=== PATIENT | female | born 1930 | race Caucasian/White ===

== ENCOUNTER → 2016-06-03 | Outpatient (REF) | payer MEDICARE | LOC: M LAB REF 16:47 | PROVIDERS: ATTEND Internal Medicine | DX: E05.90 Thyrotoxicosis, unspecified without thyrotoxic crisis or storm (principal) ==

== ENCOUNTER → 2016-07-24 | Outpatient (CLI) | payer MEDICARE ==
--- NOTE | 2016-07-25 17:01 | REP ---
NUCLEAR THYROID SCAN WITH UPTAKE: 07/25/2016: Clinical history: Abnormal blood work indicative of hyperthyroidism in May, recent ultrasound showed left lobe nodule. Currently she has fatigue, hair loss, poor appetite and weight loss of 18 pounds in 6 months. Technique: The patient received 275 microcuries I 123 as sodium iodide in a capsule. Images at 24 hours were obtained with uptake measurements also performed at that time. Findings: Thyroid imaging showed that radiotracer distribution was generally homogeneous with the exception of a small photopenic area inferior pole on the left lower pole medially. The right lobe 4.5 cm, left lobe about 3.9 cm. 24 hour uptake value is 13.8%. Normal uptake values at 24 hours are 25-35%. Impression: 1. Low 24 hour uptake at 13.8%, should be in the range of 25 - 35%. 2. Small photopenic area lower pole left lobe of the thyroid corresponding to the nodule seen on ultrasound in the lower pole on the left suggesting cool, photopenic nodule. Biopsy should be considered. Signed by Tino Villalta MD 07/26/2016 11:39 A
== END ==
LOC: M RAD 12:38
PROVIDERS: ATTEND Internal Medicine
DX: E05.90 Thyrotoxicosis, unspecified without thyrotoxic crisis or storm (principal)
CPT/HCPCS: 78012; A9516

== ENCOUNTER 2016-08-20 16:39 | Emergency (ER) | payer MEDICARE ==
[~2016-08-20] VITALS: Ht 149.9 cm; Wt 69.7 kg
[2016-08-20] MEDS ORDERED: ATOR1TAB19 PO (16:52)
[2016-08-20] MEDS: NS 1,000 ML IV SCH ×2 (17:20→18:40)
[2016-08-20 18:23] LABS: BASO % 0.3 % (0.0-1.0); EOS # 0.1 K/mm3 (0.0-0.50); EOS % 0.8 % (0.0-3.0); LARGE UNSTAINED CELL # 0.2 K/mm3 (0.0-0.4); LARGE UNSTAINED CELL % 1.8 % (0.0-4.0); LYMPH # 1.1 K/mm3 (1.5-4.5); LYMPH % 11.5 % (24.0-44.0); MEAN CORPUSCULAR HEMOGLOBIN 30.1 pg (27.0-33.0); MEAN CORPUSCULAR HGB CONC 32.6 g/dl (32.0-36.5); MEAN CORPUSCULAR VOLUME 92.1 fl (80.0-96.0); MONO # 0.4 K/mm3 (0.0-0.8); MONO % 4.3 % (0.0-5.0); NEUTROPHILS # 7.8 K/mm3 (1.8-7.7); NEUTROPHILS % 81.3 % (36.0-66.0); PLATELET COUNT, AUTOMATED 208 k/mm3 (150-450); WHITE BLOOD COUNT 9.6 K/mm3 (4.0-10.0)
--- NOTE | 2016-08-20 18:24 | REP ---
RIGHT SHOULDER, COMPLETE: 08/20/2016. Clinical history: Trauma, patient fell. Shoulder pain. Comparison: 08/14/2011. Findings: Three views show advanced osteoarthritic changes of the shoulder with progression compared to the 2011 prior. The AC joint shows some spurring, but no evidence of AC joint separation, clavicular, scapula or rib fracture. Bones are demineralized. There is no subluxation or dislocation on the scapular Y view. Very limited range of motion with internal and external rotation evident. Impression: 1. Severe osteoarthritic changes of the hip joint with mild to moderate severity in the AC joint without acute fracture, subluxation or dislocation. Progressive changes compared to 2011. Signed by Tino Villalta MD 08/21/2016 03:16 P
--- NOTE | 2016-08-20 18:25 | REP ---
AP PELVIS WITH LEFT HIP: 08/20/2016. Clinical history: Trauma, patient fell. Comparison: 01/30/2014. Findings:AP pelvis: Pelvic ring is intact. Symphysis pubis, pubic rami were unremarkable. There are clips in the inguinal regions and heavy vascular calcifications in the common femoral arteries and below. Vascular calcifications in the aortoiliac vessels as well. SI joints with sclerosis inferiorly. Iliac wings without a visible fracture, acetabuli intact. Hip joint space is narrowed, right greater than left, similar to previous study. Left hip: AP and frog-leg views show no evidence of fracture or AVN. No impaction is suggested. There is no focal lytic or sclerotic lesion about the femoral head or acetabular roof neck and trochanters grossly intact. Proximal femoral shaft unremarkable. Visualized sacrum, SI joints and iliac wing without acute finding. Sclerosis iliac margin of the SI joints and facet arthritis noted. Impression: 1. Bilateral hip arthritis, left greater than right without evidence of an acute fracture or impaction. There are degenerative changes of the lower lumbar spine, facets and SI joints. If you have high clinical suspicion for occult fracture based on persistent pain or abnormal examination, further evaluation with CT may be helpful. Signed by Tino Villalta MD 08/21/2016 03:16 P
--- NOTE | 2016-08-20 18:45 | REP ---
CT BRAIN WITHOUT CONTRAST: 08/20/2016. Clinical history: Trauma. Findings: Noncontrast images of the brain with soft tissue and bone windows reviewed for each slice level. Ventricles are midline, symmetric, dilated in proportion to the moderately severe atrophy. That atrophy is greatest in the frontal and temporal lobes. Basal ganglia were grossly symmetric and a few calcifications as benign findings typical in this age group. Heterogeneous low attenuation white matter changes bilaterally suggesting chronic small vessel white matter ischemic change. There is no vascular territory infarct, intracranial hemorrhage, mass, mass effect or extra-axial fluid collection. Brainstem intact. Cerebellum shows atrophy without focal lesion. Basal cisterns intact. The mastoids, sinuses, skull base and calvarium are without acute findings. Vascular calcifications in the carotid siphons and vertebral basilar arteries noted. There is a small superficial scalp hematoma in the right temporal region. No subjacent bony abnormality or contre-coup injury. Impression: 1. 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 2. No CT evidence of intracranial hemorrhage, acute infarct, mass, edema or extra-axial fluid collection. Small right temporal scalp hematoma. 3. No fracture skull base or calvarium and the sinuses and mastoids grossly intact. Signed by Tino Villalta MD 08/21/2016 03:17 P
--- NOTE | 2016-08-20 18:52 | REP ---
CT CERVICAL SPINE WITHOUT CONTRAST: 08/20/2016. Clinical history: Trauma, patient fell. Neck pain. Findings: Axial soft-tissue and bone window settings with coronal and sagittal bone window reconstructions per our normal CT cervical trauma protocol. Sagittal reconstructions show disc space narrowing, greatest at C5-6 and C6-7, but also at C7-T1 and T1-2. Levels above are relatively preserved. There is a few millimeters of anterolisthesis of C3 on C4, C4 on C5 and C7 on T1. Posterior osteophytes at C5-6, C6-7 and C7-T1. The dens is intact. Its relationship to the lateral masses and anterior arch of C1 appears the same on all projections. The ring of C1 is intact. Foramina show some stenosis at C5-6 bilaterally. Central canal appears mildly stenotic at C5-6, adequate at the other levels. The upper thoracic levels show the visualized ribs intact and the lung apices were grossly intact as well. Impression: 1. Degenerative disc disease throughout the cervical spine with facet arthritis at multiple levels and mild central canal stenosis at C5-6 with foraminal encroachment as well due to combined factors. 2. No acute compression defect or deformity. 3. There are some few millimeters of anterolisthesis at multiple levels as described and related to facet arthritis. The posterior elements, upper thoracic levels and soft tissues are grossly intact. Nothing acute. Signed by Tino Villalta MD 08/21/2016 03:18 P
[2016-08-20 19:06] LABS: ALBUMIN 3.5 GM/DL (3.2-5.2); ALBUMIN/GLOBULIN RATIO 1.59 (1.00-1.93); ALKALINE PHOSPHATASE 58 U/L (45-117); ALT/SGPT 16 U/L (12-78); ANION GAP 8 MEQ/L (8-16); AST/SGOT 17 U/L (15-37); BILIRUBIN,DIRECT < 0.1 MG/DL (0.0-0.2); BILIRUBIN,TOTAL 0.5 MG/DL (0.2-1.0); BLOOD UREA NITROGEN 48 MG/DL (7-18); CALCIUM LEVEL 9.6 MG/DL (8.8-10.2); CARBON DIOXIDE LEVEL 25 MEQ/L (21-32); CHLORIDE LEVEL 98 MEQ/L (98-107); CREATININE FOR GFR 1.64 MG/DL (0.55-1.02); GLOMERULAR FILTRATION RATE 31.6 (>32); GLUCOSE, FASTING 99 MG/DL (83-110); SODIUM LEVEL 131 MEQ/L (136-145); TOTAL PROTEIN 5.7 GM/DL (6.4-8.2)
--- NOTE | 2016-08-20 19:07 | REP ---
CT ABDOMEN AND PELVIS WITHOUT CONTRAST: 08/20/2016. Clinical history: Abdominal pain. No prior CT. Technique. Noncontrast exam with coronal and sagittal reconstructions. Findings: CT abdomen: Lung bases show no infiltrate, nodule or mass. No effusion. Heart is enlarged. There is left atrial and ventricular enlargement and heavy calcifications in the mitral annulus. Coronary calcifications and some mediastinal clips with sternotomy wires noted. No pericardial thickening or effusion. I see no hiatal hernia. Stomach shows no masses. Coarse calcification in the gastric wall near the fundus. I see no hepatosplenomegaly. There has been prior cholecystectomy with clips in the jamia hepatis. No biliary dilatation. A few calcifications scattered in the liver. No ascites. Spleen is not enlarged and has numerous coarse calcifications from old granulomatous disease. There is a dextrorotatory scoliosis of the thoracic and lumbar spine with advanced degenerative disc change throughout. Visualized ribs intact. Spine shows vacuum phenomenon from T10-11 through L3-4. Anterolisthesis of L3 on L4 by a few millimeters. Anterior posterior osteophytes at L2-3. Central stenosis at L2-3, L3-4 and L4-5 due to combined factors, less at L5-S1. Pancreas grossly intact. Common duct up to 11 mm. Jamia hepatis and pancreatic head typical for postoperative patient in this age group. No calcifications within it. Heavily calcified aorta without aneurysm. Small bowel loops are fluid-filled without dilatation. 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 Extrarenal pelvis on the left. No definite stone disease. No perinephric fluid or mass. Ureters show normal course to the bladder and are without dilatation or stone. No free air in the abdomen or pelvis on lung window review of all CT slices. No perforation. Colon without acute findings. No abdominal wall mass identified. CT pelvis: Bony hips show some degenerative changes of the joint space, narrowing, but no evidence of fracture or AVN. Acetabulum, iliac wings and SI joints intact. Sacrum and ala with the foramina intact. Facet arthropathy lower lumbar spine. Symphysis pubis and pubic rami unremarkable. No ventral or inguinal hernia nor pathologic inguinal adenopathy. Bladder shows some wall thickening without mass or stone. Uterus anteverted, not enlarged. No adnexal or pelvic mass. Vascular calcifications throughout the iliac and femoral vessels. Impression: 1. Advanced degenerative disc disease and facet arthritis lower lumbar spine and throughout the upper lumbar and lower thoracic region disc disease. 2. Hip arthritis, SI joint degenerative change without evidence of acute fracture. 3. There is no ascites, solid organ abnormality, perforation, abscess or mass. 4. Prior cholecystectomy with the liver and spleen evident for prior granulomatous disease. No retroperitoneal hematoma or aortic aneurysm. Signed by Tino Villalta MD 08/21/2016 03:18 P
[2016-08-20 19:11] LABS: POTASSIUM SERUM 5.4 MEQ/L (3.5-5.1)
[2016-08-20 21:14] VITALS: BP 149/61
--- NOTE | 2016-08-22 08:10 | ECGEPIP ---
Stationary ECG Study [facility] - ED Test Date: 2016-08-20 Pat Name: CJ ORTEGA Department: Room: - Gender: F [employer] Supervisor: JUANITA : [id number] Requested By: CHALINO Dhillon Order Number: [id number] Reading MD: Denis Smith Measurements Intervals [place] Rate: 76 P: 54 RI: 216 QRS: 66 QRSD: 113 T: -23 QT: 395 QTc: 446 Interpretive Statements SINUS RHYTHM WITH MARKED SINUS ARRHYTHMIA WITH FIRST DEGREE AV BLOCK MODERATE INTRAVENTRICULAR CONDUCTION DELAY NONSPECIFIC T-WAVE ABNORMALITY NO PRIORS Electronically Signed On 08-22-2016 8:10:00 EDT by Denis Smith
== END 2016-08-20 22:12 | disposition home or self-care (01) ==
LOC: M ED 18:00
DX: A08.4 Viral intestinal infection, unspecified (principal); Z91.81 History of falling; M16.0 Bilateral primary osteoarthritis of hip; M47.816 Spondylosis without myelopathy or radiculopathy, lumbar region; M19.011 Primary osteoarthritis, right shoulder; M50.30 Other cervical disc degeneration, unspecified cervical region; M48.02 Spinal stenosis, cervical region; I25.10 Atherosclerotic heart disease of native coronary artery without angina pectoris; Z95.1 Presence of aortocoronary bypass graft; Z79.899 Other long term (current) drug therapy

== ENCOUNTER → 2016-08-29 | Outpatient (REF) | payer MEDICARE ==
[~2016-08-29] MED LIST: ATOR1TAB19 PO
[2016-08-29 17:36] LABS: THYROID PEROXIDASE ANTIBODY 56.3 U/ML (<60.0)
== END ==
LOC: M LABDRAW1 17:00
PROVIDERS: ATTEND Internal Medicine Endocrinology, Diabetes & Metabolism
DX: E05.00 Thyrotoxicosis with diffuse goiter without thyrotoxic crisis or storm (principal)

== ENCOUNTER → 2016-11-06 | Outpatient (REF) | payer MEDICARE ==
[2016-11-06 19:04] LABS: FREE T4 0.61 NG/DL (0.76-1.46)
== END ==
LOC: M LABDRAW1 16:03
PROVIDERS: ATTEND Internal Medicine Endocrinology, Diabetes & Metabolism
DX: E05.00 Thyrotoxicosis with diffuse goiter without thyrotoxic crisis or storm (principal)

== ENCOUNTER → 2017-05-09 | Outpatient (CLI) | payer MEDICARE ==
[2017-05-09 17:04] LABS: FREE T4 0.93 NG/DL (0.76-1.46)
== END ==
LOC: M ADAMS 13:55
DX: E05.00 Thyrotoxicosis with diffuse goiter without thyrotoxic crisis or storm (principal)
CPT/HCPCS: 84443

== ENCOUNTER → 2017-07-09 | Outpatient (REF) | payer MEDICARE ==
[2017-07-09 21:21] LABS: FREE T4 1.38 NG/DL (0.76-1.46); THYROID STIMULATING HORMONE 0.068 uIU/ML (0.358-3.740)
== END ==
LOC: M LAB REF 18:42
DX: E05.00 Thyrotoxicosis with diffuse goiter without thyrotoxic crisis or storm (principal)
CPT/HCPCS: 84443

== ENCOUNTER → 2017-09-07 | Outpatient (CLI) | payer MEDICARE ==
[2017-09-07 20:21] LABS: THYROID STIMULATING HORMONE 0.015 uIU/ML (0.358-3.740)
[2017-09-07 20:21] LABS: FREE T4 1.48 NG/DL (0.76-1.46)
== END ==
LOC: M ADAMS 14:50
DX: E05.00 Thyrotoxicosis with diffuse goiter without thyrotoxic crisis or storm (principal)
CPT/HCPCS: 84443

== ENCOUNTER → 2017-10-08 | Outpatient (CLI) | payer MEDICARE ==
[2017-10-08 20:17] LABS: FREE T4 1.52 NG/DL (0.76-1.46); THYROID STIMULATING HORMONE 0.014 uIU/ML (0.358-3.740)
== END ==
LOC: M ADAMS 15:34
DX: E05.00 Thyrotoxicosis with diffuse goiter without thyrotoxic crisis or storm (principal)
CPT/HCPCS: 84443

== ENCOUNTER → 2017-10-19 | Outpatient (REF) | payer MEDICARE ==
[2017-10-19 19:04] LABS: IRON (FE) 68 UG/DL (50-170); PERCENT SATURATION 25.2 % (13.2-45.0); TOTAL IRON BINDING CAPACITY 270 UG/DL (250-450)
[2017-10-19 19:10] LABS: VITAMIN B12 LEVEL 642 PG/ML
[2017-10-19 19:11] LABS: FOLATE > 24.0 NG/ML
== END ==
LOC: M LAB REF 18:34
DX: D64.9 Anemia, unspecified (principal)
CPT/HCPCS: 82746

== ENCOUNTER → 2017-11-27 | Outpatient (CLI) | payer MEDICARE ==
[2017-11-27 20:18] LABS: THYROID STIMULATING HORMONE 0.049 uIU/ML (0.358-3.740)
[2017-11-27 20:18] LABS: FREE T4 1.25 NG/DL (0.76-1.46)
== END ==
LOC: M ADAMS 16:43
DX: E05.00 Thyrotoxicosis with diffuse goiter without thyrotoxic crisis or storm (principal)
CPT/HCPCS: 84443

== ENCOUNTER → 2018-04-02 | Outpatient (REF) | payer MEDICARE ==
[2018-04-02 14:05] LABS: FREE T4 1.06 NG/DL (0.76-1.46); THYROID STIMULATING HORMONE 0.252 uIU/ML (0.358-3.740)
== END ==
LOC: M LABDRWAD 12:55
PROVIDERS: ATTEND Nurse Practitioner Family
DX: E05.00 Thyrotoxicosis with diffuse goiter without thyrotoxic crisis or storm (principal)

== ENCOUNTER 2018-04-22 17:21 | Emergency (ER) | payer MEDICARE ==
[~2018-04-22] VITALS: Ht 149.9 cm; Wt 68.2 kg
[2018-04-22] MEDS ORDERED: ENAL20TA (17:29)
[2018-04-22] MEDS ORDERED: FURO40TA2 (17:29)
[2018-04-22] MEDS ORDERED: PANTOPRAZOLE 40MG TAB (PROTONIX) PO ONE (18:00)
[2018-04-22] MEDS ORDERED: NS 1,000 ML IV ONE (18:00)
[2018-04-22] MEDS ORDERED: ONDANSETRON 4MG/2ML VIAL (J2405) IV ONE (18:00)
[2018-04-22] MEDS ORDERED: PANTOPRAZOLE 40MG INJ (PROTONIX) (C9113) IV ONE (18:30)
--- NOTE | 2018-04-22 18:39 | REP ---
Acute abdominal series three views including PA chest and supine upright abdomen: PA chest: Comparison is 07/22/2012. The patient is rotated. Lung steen are clear. Cardiac size is normal. There is no free subdiaphragmatic air. There are sternotomy wires, unchanged. Impression: Essentially negative PA chest. Abdomen, supine upright views: There is scattered gas in nondistended small and large bowel loops in a nonspecific pattern. There are no air-fluid levels. There are right upper quadrant surgical clips. There are two metallic tubular shaped density superimposed over the abdomen. Significance, possibly [place] artifacts. There is scoliosis and degenerative disc disease throughout the lumbar spine. There is joint space narrowing of the hips bilaterally suggestive of arthropathy. Impression: Nonspecific bowel gas pattern. Electronically Signed by Zbigniew Dye MD 04/22/2018 06:29 P
[2018-04-22 18:47] LABS: BASO % 0.5 % (0.0-1.0); EOS % 0.3 % (0.0-3.0); HEMATOCRIT 31.4 % (36.0-47.0); HEMOGLOBIN 10.7 g/dl (12.0-15.5); LYMPH % 13.8 % (24.0-44.0); MEAN CORPUSCULAR HEMOGLOBIN 31.4 pg (27.0-33.0); MEAN CORPUSCULAR HGB CONC 34.1 g/dl (32.0-36.5); MEAN CORPUSCULAR VOLUME 92.1 fl (80.0-96.0); MONO # 0.5 10^3/uL (0.0-0.8); MONO % 7.2 % (0.0-5.0); NEUTROPHILS # 5.8 10^3/uL (1.8-7.7); NEUTROPHILS % 77.9 % (36.0-66.0); PLATELET COUNT, AUTOMATED 293 10^3/uL (150-450); RED BLOOD COUNT 3.41 10^6/uL (4.00-5.40); WHITE BLOOD COUNT 7.5 10^3/uL (4.0-10.0)
[2018-04-22 18:54] LABS: ALBUMIN 3.7 GM/DL (3.2-5.2); ALT/SGPT 21 U/L (12-78); BILIRUBIN,DIRECT < 0.1 MG/DL (0.0-0.2); BILIRUBIN,TOTAL 0.4 MG/DL (0.2-1.0); BLOOD UREA NITROGEN 41 MG/DL (7-18); CALCIUM LEVEL 9.2 MG/DL (8.8-10.2); CARBON DIOXIDE LEVEL 24 MEQ/L (21-32); CHLORIDE LEVEL 96 MEQ/L (98-107); CREATININE FOR GFR 1.57 MG/DL (0.55-1.30); GLOMERULAR FILTRATION RATE 33.1 (>32); GLUCOSE, FASTING 77 MG/DL (70-100); LIPASE 119 U/L (73-393); SODIUM LEVEL 130 MEQ/L (136-145); TOTAL PROTEIN 6.2 GM/DL (6.4-8.2)
[2018-04-22] MEDS ORDERED: IMOD2TAB16 PO (19:41)
[2018-04-22] MEDS ORDERED: LOPERAMIDE 2 MG CAP PO ONE (19:45)
[2018-04-22 20:46] VITALS: BP 147/78
== END 2018-04-22 20:54 | disposition home or self-care (01) ==
LOC: M ED 17:21
DX: R19.7 Diarrhea, unspecified (principal); I10 Essential (primary) hypertension; E78.5 Hyperlipidemia, unspecified; Z95.5 Presence of coronary angioplasty implant and graft; Z98.890 Other specified postprocedural states; Z79.899 Other long term (current) drug therapy
CPT/HCPCS: 74021; 80048; 80076; 83690; 85025; 96374; 96375; 99284; C9113; J2405

== ENCOUNTER → 2018-11-11 | Outpatient (REF) | payer MEDICARE ==
[~2018-11-11] MED LIST changes: +ENAL20TA; +FURO40TA2; +IMOD2TAB16 PO
[2018-11-11 20:02] LABS: FREE T4 1.44 NG/DL (0.76-1.46); THYROID STIMULATING HORMONE 0.009 uIU/ML (0.358-3.740)
== END ==
LOC: M LABDRWAD 18:56
PROVIDERS: ATTEND Internal Medicine Endocrinology, Diabetes & Metabolism
DX: E05.00 Thyrotoxicosis with diffuse goiter without thyrotoxic crisis or storm (principal)

== ENCOUNTER → 2018-12-28 | Outpatient (REF) | payer MEDICARE ==
[2018-12-28 18:12] LABS: PERCENT SATURATION 11.8 % (13.2-45.0)
== END ==
LOC: M LAB REF 16:55
PROVIDERS: ATTEND Internal Medicine
DX: D64.9 Anemia, unspecified (principal)

== ENCOUNTER → 2019-03-23 | Outpatient (REF) | payer MEDICARE ==
[2019-03-23 17:34] LABS: BASO # 0.1 10^3/uL (0.0-0.2); BASO % 0.9 % (0.0-1.0); EOS # 0.1 10^3/uL (0.0-0.5); EOS % 1.7 % (0.0-3.0); HEMATOCRIT 31.3 % (36.0-47.0); LYMPH # 1.2 10^3/uL (1.5-5.0); MEAN CORPUSCULAR HEMOGLOBIN 31.4 pg (27.0-33.0); MEAN CORPUSCULAR HGB CONC 31.9 g/dl (32.0-36.5); MEAN CORPUSCULAR VOLUME 98.4 fl (80.0-96.0); MONO # 0.7 10^3/uL (0.0-0.8); MONO % 8.8 % (0.0-5.0); NEUTROPHILS # 5.8 10^3/uL (1.5-8.5); NEUTROPHILS % 73.2 % (36.0-66.0); PLATELET COUNT, AUTOMATED 295 10^3/uL (150-450); RED BLOOD COUNT 3.18 10^6/uL (4.00-5.40); WHITE BLOOD COUNT 7.9 10^3/uL (4.0-10.0)
[2019-03-23 18:02] LABS: FREE T4 0.81 NG/DL (0.76-1.46); THYROID STIMULATING HORMONE 5.94 uIU/ML (0.358-3.740)
== END ==
LOC: M LABDRWAD 16:18
PROVIDERS: ATTEND Nurse Practitioner Family
DX: E05.00 Thyrotoxicosis with diffuse goiter without thyrotoxic crisis or storm (principal)

== ENCOUNTER → 2019-07-21 | Outpatient (REF) | payer MEDICARE ==
[2019-07-21 19:36] LABS: FREE T4 0.9 NG/DL (0.76-1.46); THYROID STIMULATING HORMONE 4.82 uIU/ML (0.358-3.740)
== END ==
LOC: M LABDRWAD 16:22
PROVIDERS: ATTEND Nurse Practitioner Family
DX: E05.00 Thyrotoxicosis with diffuse goiter without thyrotoxic crisis or storm (principal)